=== PATIENT | female | born 1945 | race Caucasian/White ===

== ENCOUNTER → 2016-09-08 | Outpatient (CLI) | payer OTHER ==
--- NOTE | 2016-09-08 15:01 | US ---
HISTORY: History of palpable right breast lump x1 week. The patient has a reported history of bilat eral breast cancer with lumpectomies and radiation and chemotherapy. Comparison: 07/24/2014 FINDINGS: Mammogram: Bilateral CC and MLO projections of the right and left breast were obtained. Scattered f ibroglandular tissue is seen to be present. No significant architectural distortion, mass or cluste red microcalcifications can be observed to suggest malignancy. No skin thickening or nipple retract ion is appreciated. No pathological lymphadenopathy can be identified. There are surgical changes of both breasts. Ultrasound: Targeted ultrasound of the right breast was performed in the region of interest. At the 12 o'clock position there are 2 anechoic cysts with smooth thin tiwari present. The larger measures 5 x 9 x 9 mm. The smaller cyst measures 4 x 5 x 6 mm. No solid masses are identified. IMPRESSION: There are 2 cysts noted at the 12 o'clock position of the right breast in the region of interest, the larger measuring up to 9 mm and the smaller measuring up to 6 mm. No solid masses are seen and there are no abnormal findings seen on diagnostic mammogram. ACR CATEGORY 3: Probably benign finding. Short interval followup suggested. 6 month followup can be performed to ensure stability. Diagnostic CAD was utilized and reviewed. * 0 (ZERO) - ASSESSMENT INCOMPLETE; ADDITIONAL IMAGING IS NEEDED. * 1/1 (ONE) - NEGATIVE. * 2/II (TWO) - BENIGN FINDINGS. * 3/III (THREE) - PROBABLY BENIGN FINDING; SHORT INTERVAL FOLLOW-UP SUGGESTED. * 4/IV (FOUR) - SUSPICIOUS ABNORMALITY; BIOPSY SHOULD BE CONSIDERED. * 5/V - HIGHLY SUSPICIOUS OF MALIGNANCY; BIOPSY SHOULD BE PERFORMED. A NEGATIVE X-RAY REPORT SHOULD NOT DELAY BIOPSY IF A DOMINANT OR CLINICALLY SUSPICIOUS MASS IS PRESENT; 4 TO 8 PERCENT OF CANCERS ARE NOT IDENTIFIED BY X-RAY. A NEG ATIVE REPORT MAY REINFORCE THE CLINICAL IMPRESSION. ADENOSIS AND DENSE BREASTS MAY OBSCURE AN UNDER LYING NEOPLASM. Reported By:
== END ==
LOC: RAD 13:23
PROVIDERS: ATTEND Family Medicine
DX: N63 Unspecified lump in breast (principal); Z85.3 Personal history of malignant neoplasm of breast
CPT/HCPCS: 76642; 77066

== ENCOUNTER → 2016-10-06 | Outpatient (CLI) | payer OTHER ==
[2016-10-06 14:28] LABS: CREATININE 0.86 mg/dL (0.55-1.02)
--- NOTE | 2016-10-06 16:06 | MRI ---
STUDY: MRI OF THE BRAIN WITHOUT AND WITH GADOLINIUM HISTORY: Headaches causing frequent awakening from sleep. History of breast cancer. Technique: Multiplanar multi-sequence MRI of the brain was obtained utilizing standard departmental protocol. Sagittal and axial T1, axial T2, FLAIR, diffusion (DWI/ADC) images through the brain were performed. 13 cc of Omniscan was administered intravenously without reported complication following acquisition of informed written consent. Post gadolinium axial and coronal T1 weighted images were also perform ed and reviewed. Comparison: None. Findings: Pre gadolinium brain: The sulci, cisterns and ventricles are age appropriate. There are thin conflue nt and a few scattered foci of T2 prolongation in the periventricular and subcortical white matter o f both hemispheres. This is a nonspecific finding which likely represents mild microangiopathic dunham ge in a patient of this age. There is no evidence of acute territorial infarction, hemorrhage, mass, mass effect, or midline shif t. There are no abnormal intra-axial or extra-axial fluid collections. The major intracranial vascul ar flow voids appear intact. The right vertebral artery is dominant. Post gadolinium brain: Following the uneventful administration of intravenous gadolinium, there is n o evidence of abnormal parenchymal or leptomeningeal enhancement. IMPRESSION: 1. No evidence of acute intracranial abnormality. 2. Nonspecific white matter change. Reported By:
== END ==
LOC: RAD 13:56
PROVIDERS: ATTEND Family Medicine
DX: R51 Headache (principal); Z85.3 Personal history of malignant neoplasm of breast
CPT/HCPCS: 36415; 70553; 82565; 84520